=== PATIENT | male | born 1970 | race Caucasian/White ===

== ENCOUNTER 2024-07-21 11:44 | Emergency (ER) | payer OTHER, SELFPAY ==
[2024-07-21 11:45] VITALS: BP 159/73; PULSE 65; RESP 15; TEMP 37.1; O2SAT 94
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
[2024-07-21 13:32] VITALS: BP 159/73; PULSE 65; RESP 15; TEMP 37.1; O2SAT 94
== END 2024-07-21 13:34 | disposition home or self-care (01) ==
PROVIDERS: Emergency Provider Emergency Medicine
DX: S62.627A Displaced fracture of middle phalanx of left little finger, initial encounter for closed fracture (principal); S63.287A Dislocation of proximal interphalangeal joint of left little finger, initial encounter; V18.4XXA Pedal cycle driver injured in noncollision transport accident in traffic accident, initial encounter; Y92.414 Local residential or business street as the place of occurrence of the external cause; Y93.55 Activity, bike riding
CPT/HCPCS: 26770; 73140; 99283